=== PATIENT | male | born 1950 | race Caucasian/White ===

== ENCOUNTER → 2020-09-18 08:47 | Outpatient (BNVA) | payer MEDICARE, OTHER, SELFPAY | PROVIDERS: Visit Provider Urology | DX: N40.1 Benign prostatic hyperplasia with lower urinary tract symptoms (principal); R33.9 Retention of urine, unspecified; N52.01 Erectile dysfunction due to arterial insufficiency; Z13.9 Encounter for screening, unspecified; N13.8 Other obstructive and reflux uropathy; R39.14 Feeling of incomplete bladder emptying; R39.16 Straining to void; R39.12 Poor urinary stream | CPT/HCPCS: 51798; 99212 ==

== ENCOUNTER → 2021-09-25 13:31 | Outpatient (BNVA) | payer MEDICARE, OTHER, SELFPAY | PROVIDERS: PCP Internal Medicine; Visit Provider Urology | DX: N40.1 Benign prostatic hyperplasia with lower urinary tract symptoms (principal); R33.8 Other retention of urine; N52.01 Erectile dysfunction due to arterial insufficiency | CPT/HCPCS: Q3014 ==

== ENCOUNTER → 2022-04-02 08:08 | Outpatient (BNVA) | payer MEDICARE, OTHER, SELFPAY | PROVIDERS: PCP Internal Medicine; Visit Provider Urology | DX: N52.01 Erectile dysfunction due to arterial insufficiency (principal); N40.0 Benign prostatic hyperplasia without lower urinary tract symptoms; N28.1 Cyst of kidney, acquired | CPT/HCPCS: 51798; 99212 ==

== ENCOUNTER 2022-09-09 08:38 | Outpatient (REF) | payer MEDICARE, OTHER, SELFPAY ==
--- NOTE | ~2022-09-09 | US_ITS ---
EXAMINATION: US RETROPERITONEAL LIMITED (RENAL ONLY) CLINICAL INFORMATION: Cyst of kidney, acquired. COMPARISON: None available. TECHNIQUE: Real-time imaging of the kidneys. FINDINGS: RIGHT KIDNEY: 11.1 x 6.5 x 5.7 cm (SAG x AP x TRV). The kidney is normal in size, contour, and echogenicity. Renal cortical thickness is normal. No renal calculi or hydronephrosis. 1.1 cm thinly septated cyst with thin mural calcification located in the mid kidney. This is likely Bosniak 2. No follow-up imaging is recommended. LEFT KIDNEY: 11.3 x 5.7 x 5.1 cm (SAG x AP x TRV). The kidney is normal in size, contour, and echogenicity. Renal cortical thickness is normal. No renal calculi or hydronephrosis. 0.7 cm cyst with mural calcification located in the mid kidney. This is likely Bosniak 2. No follow-up imaging is recommended. 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 No follow-up imaging is recommended.
== END 2022-09-09 08:39 | disposition home or self-care (01) ==
LOC: HO.US 08:38
PROVIDERS: PCP Internal Medicine; Visit Provider Urology
DX: N28.1 Cyst of kidney, acquired (principal)
CPT/HCPCS: 76775

== ENCOUNTER 2022-09-30 08:24 | Outpatient (AMB) | payer MEDICARE, OTHER, SELFPAY ==
--- NOTE | 2022-09-30 08:25 | MHC.OFFVIS ---
Intake Intake Visit Reasons: 6M US(set) Intake Note: Patient is present for Telephone Urology Med: Sildenafil, Terazosin, Tadalafil Antibiotic Allergy: Penicillin V Blood Thinner: Pharmacy: [facility] Allergies penicillin V Allergy (Unknown, Verified 09/30/22 08:26) Unknown Medication List - Last Reconciled 09/30/22 by Surinder Torres MD aripiprazole 2 mg PO DAILY atorvastatin 20 mg PO BEDTIME bupropion HCl 150 mg PO BID sildenafil 100 mg PO DIRECTED tadalafil 5 mg PO DAILY PRN 90 days terazosin 5 mg PO DAILY 90 days HPI HPI Comments History of Present Illness Details Roberto Stallworth is a very pleasant male. He is a patient of Dr. Meza. He is seen for the following urologic conditions. - lower urinary tract symptoms - erectile dysfunction - renal cysts - stable bilateral on US 1cm Telemedicine Evaluation 15 min Consultation [employer] Thuan Video attempted Continues with terazosin good response Ultrasound on cysts stable with no follow-up Prostate/Bladder:? Terazosin 5 mg ? Benign prostatic hyperplasia (BPH) was diagnosed?years ago.? Current symptoms include?weak flow, incomplete emptying, straining.? Severity of the symptoms?that is moderate.? Aggravating factors include?fluid intake.? Current medication(s) include?TURP June 2008, TRUS biopsy November 2007. ?09/27 , finasteride, terazosin.? Recent labs included?a PSA (prostate-specific antigen) January 2014 1.2, ?05/26 0.6, 05/27 0.6, 08/27 0.3, 08/30 0.9 ? Investigative studies included?Uroflow. Maximum flow 24 cc, prior postvoid residual 340 cc. ?06/26 , a cystoscopy, showing regrowth right lateral lobe Erectile Dysfunction Good response to on demand medications Trial daily Cialis to see if also benefits bladder PFSH Medical History Acute cystitis without hematuria BPH (benign prostatic hyperplasia) Elevated PSA Erectile dysfunction due to arterial insufficiency Incomplete emptying of bladder Surgical History History of surgery Social History Patient Tobacco Use Status: Never used Tobacco Review of Systems Const All systems reviewed & are unremarkable except as noted in HPI and below Reports no additional complaints Resp Reports no additional complaints GI Reports no additional complaints Reports as per HPI Musc Reports no additional complaints Physical Exam Telemedicine evaluation Appropriate responses Regular breathing rate and rhythm HEENT Head: Yes normal to inspection Ears: hearing grossly normal bilaterally Eyes General: appearance normal, both eyes and all related structures Neck Neck: Yes normal visual inspection Chest Chest palpation & inspection: normal inspection of the chest Resp Effort & Inspection: normal respiratory effort and able to speak in complete sentences Assessment & Plan Assessment & Plan (1) Renal cyst: Code(s): N28.1 - Cyst of kidney, acquired (2) Incomplete emptying of bladder: Code(s): R33.9 - Retention of urine, unspecified (3) BPH (benign prostatic hyperplasia): Code(s): N40.0 - Benign prostatic hyperplasia without lower urinary tract symptoms Plan 6 month follow-up PSA Patient Instructions: Imaging studies, laboratory and physical exam results were discussed and reviewed in detail. No major barriers to patient understanding were identified. An opportunity to ask questions regarding the treatment plan was provided. All questions were answered. The patient expressed understanding and agreement with the above treatment plan. The patient is aware they should contact our office by phone for worsening of their current condition or the appearance of new urologic symptoms. Compliance is encouraged with any medications and followup testing that is ordered. It is a privilege to participate in the urologic care of your patient. If you have any questions or concerns regarding treatment for the above conditions, or other urologic issues, please do not hesitate to contact me. The office telephone contact is [phone]. This note is constructed using voice recognition software. While every effort has been made to ensure accuracy food and drink factory workers errors may have been included. Yours sincerely, Dr Surinder Torres MD, [facility] - Urology Providers of Expert, Compassionate Care for the Genitourinary System Telehealth Telehealth Location of provider rendering services: practice address Location of patient: address on file Patient Identification confirmed using: Name, : Yes Telehealth method: video Patient verbally consented to treatment: Yes Patient verbally consented to billing insurance company: Yes Patient informed of any privacy concerns related to visit: Yes Coding Level of Care Code Tele Est Pt Level 3 (59920) Diagnoses Renal cyst N28.1 Incomplete emptying of bladder R33.9 BPH (benign prostatic hyperplasia) N40.0
== END 2022-09-30 11:56 | disposition home or self-care (01) ==
LOC: HO.HUSH 08:24
PROVIDERS: PCP Internal Medicine; Visit Provider Urology
DX: N28.1 Cyst of kidney, acquired (principal); R33.9 Retention of urine, unspecified; N40.0 Benign prostatic hyperplasia without lower urinary tract symptoms
CPT/HCPCS: 99213

== ENCOUNTER → 2022-09-30 08:24 | Outpatient (BNVA) | payer MEDICARE, OTHER, SELFPAY | PROVIDERS: PCP Internal Medicine; Visit Provider Urology | DX: N40.1 Benign prostatic hyperplasia with lower urinary tract symptoms (principal); R33.9 Retention of urine, unspecified; N28.1 Cyst of kidney, acquired | CPT/HCPCS: Q3014 ==

== ENCOUNTER 2023-04-03 11:22 | Outpatient (AMB) | payer MEDICARE, OTHER, SELFPAY ==
--- NOTE | 2023-04-03 11:34 | A.OFFVIS_ITS ---
Intake Intake Visit Reasons: 6M PSA(set) Intake Note: Patient presents today for a follow-up Meds- Sildenafil, Tadalafil, Terazosin Allergies to Antibiotic- Penicillin Blood Thinner- None Post Void Residual: 192ml Assembler Faucets Required: No Accompanied by: Self / Same As Patient Allergies penicillin V Allergy (Unknown, Verified 04/03/23 11:48) Unknown HPI HPI Comments History of Present Illness Details Roberto Stallworth is a very pleasant male. He is a patient of Dr. Meza. He is seen for the following urologic conditions. - lower urinary tract symptoms - erectile dysfunction - renal cysts - stable bilateral on US 1 cm Increasing urgency and frequency over past few months Struggling with bladder Fine during the evening Has bathroom planning Trial oxybutynin Prostate/Bladder:? Terazosin 5 mg ? Benign prostatic hyperplasia (BPH) was diagnosed?years ago.? Current symptoms include?weak flow, incomplete emptying, straining.? Severity of the symptoms?that is moderate.? Aggravating factors include?fluid intake.? Current medication(s) include?TURP June 2008, TRUS biopsy November 2007. ?09/27 , finasteride, terazosin.? Recent labs included?a PSA (prostate-specific antigen) January 2014 1.2, ?05/26 0.6, 05/27 0.6, 08/27 0.3, 08/30 0.9 ? Investigative studies included?Uroflow. Maximum flow 24 cc, prior postvoid residual 340 cc. ?06/26 , a cystoscopy, showing regrowth right lateral lobe Erectile Dysfunction Good response to on demand medications Trial daily Cialis to see if also benefits bladder PFSH Medical History Elevated PSA Acute cystitis without hematuria Erectile dysfunction due to arterial insufficiency Incomplete emptying of bladder BPH (benign prostatic hyperplasia) Surgical History History of surgery Social History Patient Tobacco Use Status: Never used Tobacco Review of Systems Const Denies chills and Denies fever(s) Card Reports no additional complaints and Denies syncope Resp Denies cough GI Denies abdominal pain and Denies heartburn Reports as per HPI and Denies change in libido Neuro Denies syncope Psych Denies change in libido Endo Denies change in libido Physical Exam Const General: cooperative, healthy appearing, comfortable and no acute distress Orientation/consciousness: patient oriented x3 HEENT Face and sinus: Yes normal facial exam Mouth: moist mucous membranes Neck Neck: Yes normal visual inspection, Yes full ROM and Yes trachea midline Chest Chest palpation & inspection: normal inspection of the chest Resp Effort & Inspection: normal respiratory effort, able to speak in complete sentences and no respiratory distress GI Inspection: Yes normal to inspection Back/Spine/Pelvis Cervical Spine: normal cervical lordosis Thoracic/Lumbar Spine: thoracic and lumbar spine normal to inspection Skin General skin exam: no rashes or lesions noted Neuro General: patient oriented x3, gait normal, tone normal and moves all extremities Extrem General: Yes normal to inspection and Yes capillary refill normal Office Procedures Post Void Residual Post Residual Void Post Void Residual (PVR): 192 [id number]-Vaxc Void Residual by ultrasound Assessment & Plan Assessment & Plan (1) Overactive bladder: Code(s): N32.81 - Overactive bladder (2) Incomplete emptying of bladder: Code(s): R33.9 - Retention of urine, unspecified (3) BPH (benign prostatic hyperplasia): Code(s): N40.0 - Benign prostatic hyperplasia without lower urinary tract symptoms Plan Trial oxybutynin Two month follow-up cysto Orders: Orders AMB Post Void Residual by ultrasound Today N40.0 - Benign prostatic hyperplasia without lower urinary tract symptoms, R33.9 - Retention of urine, unspecified US retroperitoneal comp Today N28.1 - Cyst of kidney, acquired Medications: New oxybutynin chloride ER 5 mg PO DAILY 30 days 30 tabs 1RF N28.1 - Cyst of kidney, acquired, N32.81 - Overactive bladder, R39.15 - Urgency of urination Patient Instructions: Imaging studies, laboratory and physical exam results were discussed and reviewed in detail. No major barriers to patient understanding were identified. An opportunity to ask questions regarding the treatment plan was provided. All questions were answered. The patient expressed understanding and agreement with the above treatment plan. The patient is aware they should contact our office by phone for worsening of their current condition or the appearance of new urologic symptoms. Compliance is encouraged with any medications and followup testing that is ordered. It is a privilege to participate in the urologic care of your patient. If you h ave any questions or concerns regarding treatment for the above conditions, or other urologic issues, please do not hesitate to contact me. The office telephone contact is [phone]. This note is constructed using voice recognition software. While every effort has been made to ensure accuracy hand tier errors may have been included. Yours sincerely, Dr Surinder Torres MD, [facility] - Urology Providers of Expert, Compassionate Care for the Genitourinary System Coding Level of Care Code Est Pt Level 4 (79866) Diagnoses Overactive bladder N32.81 Incomplete emptying of bladder R33.9 BPH (benign prostatic hyperplasia) N40.0 CPT Codes Post Residual Void - PVR CPT Code: 39932-Jibq Void Residual by ultrasound ([id number])
== END 2023-04-03 11:50 | disposition home or self-care (01) ==
PROVIDERS: PCP Internal Medicine; Visit Provider Urology
DX: N32.81 Overactive bladder (principal); R33.9 Retention of urine, unspecified; N40.0 Benign prostatic hyperplasia without lower urinary tract symptoms
CPT/HCPCS: 99214

== ENCOUNTER → 2023-04-03 11:22 | Outpatient (BNVA) | payer MEDICARE, OTHER, SELFPAY | PROVIDERS: PCP Internal Medicine; Visit Provider Urology | DX: N40.0 Benign prostatic hyperplasia without lower urinary tract symptoms (principal); N32.81 Overactive bladder; R33.9 Retention of urine, unspecified | CPT/HCPCS: 51798; 99212 ==

== ENCOUNTER 2023-05-13 12:13 | Outpatient (REF) | payer MEDICARE, OTHER, SELFPAY ==
--- NOTE | ~2023-05-13 | US_ITS ---
EXAMINATION: US RETROPERITONEAL COMPLETE (RENAL) CLINICAL INFORMATION: Cyst of kidney, acquired. COMPARISON: Renal ultrasound 09/09/2022. TECHNIQUE: Real-time imaging of the kidneys and bladder. FINDINGS: RIGHT KIDNEY: 12.1 x 4.7 x 5.6 cm (SAG x AP x TRV). The kidney is normal in size, contour, and echogenicity. Renal cortical thickness is normal. No renal calculi or focal parenchymal lesions. Previously seen cyst is not appreciated on the current exam. Mild caliectasis. LEFT KIDNEY: 11.3 x 6.1 x 5.8 cm (SAG x AP x TRV). The kidney is normal in size, contour, and echogenicity. Renal cortical thickness is normal. No renal calculi or focal parenchymal lesions. Previously seen cyst is not appreciated on the current exam. Mild caliectasis. BLADDER: Distended trabeculated bladder measuring 421 mL prevoid and 273 mL post void. The prostate is enlarged measuring 88 mL. Enlarged prostate, volume 87.9 mL. US/US retroperitoneal comp IMPRESSION: Previously seen bilateral renal cysts are not appreciated currently. Enlarged prostate with trabeculated urinary bladder and post void residual 273 mL. Mild bilateral caliectasis.
== END 2023-05-13 12:14 | disposition home or self-care (01) ==
LOC: HO.US 12:13
PROVIDERS: PCP Family Medicine; Visit Provider Urology
DX: N28.1 Cyst of kidney, acquired (principal)
CPT/HCPCS: 76770

== ENCOUNTER 2023-06-04 10:04 | Outpatient (AMB) | payer MEDICARE, OTHER, SELFPAY ==
--- NOTE | 2023-06-04 10:23 | MHC.OFFVIS ---
Intake Visit Reasons: 2m/US(set) Intake Note: Patient is Present for PVR/ Urology Med: Oxybutynin, Sildenafil, Tadalafil, Terazosin Antibiotic Allergy: Penicillin Blood Thinner: None Last PVR: 192ml Todays PVR: 18 Allergies penicillin V Allergy (Unknown, Verified 06/04/23 10:27) Unknown Medication List - Last Reconciled 06/04/23 by Surinder Torres MD aripiprazole 2 mg PO DAILY bupropion HCl SR 150 mg PO BID oxybutynin chloride ER 5 mg PO DAILY 90 days sildenafil 100 mg PO DIRECTED terazosin 5 mg PO DAILY 90 days HPI Comments Details: Roberto Stallworth is a very pleasant male. He is a patient of Dr. Meza. He is seen for the following urologic conditions. - lower urinary tract symptoms - combination obstructive and irritative symptoms - erectile dysfunction - renal cysts - stable bilateral on US 1cm Significant improvement with oxybutynin Will continue Six-month follow-up Not using tadalafil daily Lower urinary tract symptoms: Initial therapy for obstructive symptoms Secondary development of irritative symptoms Response to combination Terazosin 5 mg and oxybutynin ? Benign prostatic hyperplasia (BPH) was diagnosed?years ago.? Current symptoms include?weak flow, incomplete emptying, straining.? Severity of the symptoms?that is moderate.? Aggravating factors include?fluid intake.? Current medication(s) include?TURP June 2008, TRUS biopsy November 2007. ?09/27 , finasteride, terazosin.? Recent labs included?a PSA (prostate-specific antigen) January 2014 1.2, ?05/26 0.6, 05/27 0.6, 08/27 0.3, 08/30 0.9 ? Investigative studies included?Uroflow. Maximum flow 24 cc, prior postvoid residual 340 cc. ?06/26 , a cystoscopy, showing regrowth right lateral lobe Erectile Dysfunction Good response to on demand medications Has been on combination daily Cialis with on demand sildenafil [facility] Medical History Elevated PSA Acute cystitis without hematuria Erectile dysfunction due to arterial insufficiency Incomplete emptying of bladder BPH (benign prostatic hyperplasia) Surgical History History of surgery Social History Patient Tobacco Use Status: Never used Tobacco Office Procedures Post Void Residual Post Residual Void Post Void Residual (PVR): 18 [id number]-[id number] Void Residual by ultrasound Assessment & Plan Assessment & Plan (1) Overactive bladder: Code(s): N32.81 - Overactive bladder Category: Medical (2) Erectile dysfunction due to arterial insufficiency: Code(s): N52.01 - Erectile dysfunction due to arterial insufficiency Category: Medical (3) BPH (benign prostatic hyperplasia): Code(s): N40.0 - Benign prostatic hyperplasia without lower urinary tract symptoms Category: Medical Plan Refill oxybutynin Six month follow-up Orders: Orders AMB Post Void Residual by ultrasound Today R33.9 - Retention of urine, unspecified Medications: Changed From oxybutynin chloride ER 5 mg PO DAILY 30 days 30 tabs 1RF N28.1 - Cyst of kidney, acquired, N32.81 - Overactive bladder, R39.15 - Urgency of urination To oxybutynin chloride ER 5 mg PO DAILY 90 days 90 tabs 1RF N28.1 - Cyst of kidney, acquired, N32.81 - Overactive bladder, R39.15 - Urgency of urination Discontinued tadalafil Discontinued Reason: Patient Completed Course 5 mg PO DAILY 90 days PRN 90 tabs 1RF sexual activity N52.01 - Erectile dysfunction due to arterial insufficiency Patient Instructions: Imaging studies, laboratory and physical exam results were discussed and reviewed in detail. No major barriers to patient understanding were identified. An opportunity to ask questions regarding the treatment plan was provided. All questions were answered. The patient expressed understanding and agreement with the above treatment plan. The patient is aware they should contact our office by phone for worsening of their current condition or the appearance of new urologic symptoms. Compliance is encouraged with any medications and followup testing that is ordered. It is a privilege to participate in the urologic care of your patient. If you have any questions or concerns regarding treatment for the above conditions, or other urologic issues, please do not hesitate to contact me. The office telephone contact is [phone]. This note is constructed using voice recognition software. While every effort has been made to ensure accuracy grain unloader machine errors may have been included. Yours sincerely, Dr Surinder Torres MD, [facility] - Urology Providers of Expert, Compassionate Care for the Genitourinary System Coding Level of Care Code Est Pt Level 3 (48773) Complex EM visit Add On G2211 Diagnoses Overactive bladder N32.81 Erectile dysfunction due to arterial insufficiency N52.01 BPH (benign prostatic hyperplasia) N40.0 CPT Codes Post Residual Void - PVR CPT Code: 46054-Aaim Void Residual by ultrasound ([id number])
== END 2023-06-04 10:46 | disposition home or self-care (01) ==
PROVIDERS: PCP Internal Medicine; Visit Provider Urology
DX: N32.81 Overactive bladder (principal); N52.01 Erectile dysfunction due to arterial insufficiency; N40.0 Benign prostatic hyperplasia without lower urinary tract symptoms
CPT/HCPCS: 99213; G2211

== ENCOUNTER → 2023-06-04 10:04 | Outpatient (BNVA) | payer MEDICARE, OTHER, SELFPAY | PROVIDERS: PCP Internal Medicine; Visit Provider Urology | DX: N32.81 Overactive bladder (principal); N52.01 Erectile dysfunction due to arterial insufficiency; N40.0 Benign prostatic hyperplasia without lower urinary tract symptoms | CPT/HCPCS: 51798; 99212 ==

== ENCOUNTER 2024-01-15 13:55 | Outpatient (AMB) | payer MEDICARE, OTHER, SELFPAY ==
--- NOTE | 2024-01-15 14:34 | A.OFFVIS_ITS ---
Intake Visit Reasons: 6m/PVR Intake Note: Patient is present for 6M/ PVR Urology Medication:TERAZOSIN,OXYBUTYNIN,SILDENAFIL Antibiotic Allergy:PENICILLIN V Blood Thinner:NONE Last PVR:192ML'S Todays PVR:0ML'S [employer] Required: No Allergies penicillin V Allergy (Unknown, Verified 01/15/24 14:35) Unknown HPI Comments Details: Roberto Stallworth is a very pleasant male. He is a patient of Dr. Meza. He is seen for the following urologic conditions. - lower urinary tract symptoms - combination obstructive and irritative symptoms - erectile dysfunction - renal cysts - stable bilateral on US 1cm Six-month follow-up Remains on oxybutynin with terazosin Had some degree of variability using sildenafil Recommend trying tadalafil daily He has enough of this to try at home he says Lower urinary tract symptoms: Initial therapy for obstructive symptoms Secondary development of irritative symptoms Response to combination Terazosin 5 mg and oxybutynin ? Benign prostatic hyperplasia (BPH) was diagnosed?years ago.? Current symptoms include?weak flow, incomplete emptying, straining.? Severity of the symptoms?that is moderate.? Aggravating factors include?fluid intake.? Current medication(s) include?TURP June 2008, TRUS biopsy November 2007. ?09/27 , finasteride, terazosin.? Recent labs included?a PSA (prostate-specific antigen) January 2014 1.2, ?05/26 0.6, 05/27 0.6, 08/27 0.3, 08/30 0.9 ? Investigative studies included?Uroflow. Maximum flow 24 cc, prior postvoid residual 340 cc. ?06/26 , a cystoscopy, showing regrowth right lateral lobe Erectile Dysfunction Good response to on demand medications Uses primary sildenafil PFSH Medical History Elevated PSA Acute cystitis without hematuria Erectile dysfunction due to arterial insufficiency Incomplete emptying of bladder BPH (benign prostatic hyperplasia) Surgical History History of surgery Social History Patient Tobacco Use Status: Never used Tobacco Review of Systems Const Denies chills and Denies fever(s) Card Reports no additional complaints and Denies syncope Resp Denies cough GI Denies abdominal pain and Denies heartburn Reports as per HPI and Denies change in libido Neuro Denies syncope Psych Denies change in libido Endo Denies change in libido Physical Exam Const General: cooperative, healthy appearing, comfortable and no acute distress Orientation/consciousness: patient oriented x3 HEENT Face and sinus: Yes normal facial exam Mouth: moist mucous membranes Neck Neck: Yes normal visual inspection, Yes full ROM and Yes trachea midline Chest Chest palpation & inspection: normal inspection of the chest Resp Effort & Inspection: normal respiratory effort, able to speak in complete sentences and no respiratory distress GI Inspection: Yes normal to inspection Back/Spine/Pelvis Cervical Spine: normal cervical lordosis Thoracic/Lumbar Spine: thoracic and lumbar spine normal to inspection Skin General skin exam: no rashes or lesions noted Neuro General: patient oriented x3, gait normal, tone normal and moves all extremities Extrem General: Yes normal to inspection and Yes capillary refill normal Office Procedures Post Void Residual Post Residual Void Post Void Residual (PVR): 0 [id number]-Tcyp Void Residual by ultrasound Results AMB Urinalysis, Automated UA Leukoctes 0 Mitzi/uL Last Edit by EARLENE [place] on 01/15/24 14:49 UA Nitrite Negative Last Edit by EARLENE [place] on 01/15/24 14:49 UA Urobilinogen 0.2 mg/dL Last Edit by EARLENE [place] on 01/15/24 14:4 9 UA Protein 0 mg/dL Last Edit by EARLENE [place] on 01/15/24 14:49 UA pH 6.0 Last Edit by EARLENE [place] on 01/15/24 14:49 UA Blood 0 Da/uL Last Edit by EARLENE [place] on 01/15/24 14:49 UA Specific [place] 1.020 Last Edit by EARLENE [place] on 01/15/24 14: 49 UA Ketone Negative Last Edit by EARLENE [place] on 01/15/24 14:49 UA Bilirubin 0 mg/dL Last Edit by EARLENE [place] on 01/15/24 14:49 UA Glucose 0 mg/dL Last Edit by EARLENE [place] on 01/15/24 14:49 Results Reviewed Results Reviewed: Laboratory Last Values Urine pH (Auto) 6.0 01/15/24 14:49 Specific [place] (Auto) 1.020 01/15/24 14:49 Urine Protein (Auto) 0 mg/dL 01/15/24 14:49 Glucose (UA)(Auto) 0 mg/dL 01/15/24 14:49 Urine Ketones (Auto) Negative 01/15/24 14:49 Urine Blood (Auto) 0 Da/uL 01/15/24 14:49 Urine Nitrite (Auto) Negative 01/15/24 14:49 Urine Bilirubin (Auto) 0 mg/dL 01/15/24 14:49 Urine Urobilinogen (Auto) 0.2 mg/dL 01/15/24 14:49 Leukocyte Esterase (Auto) 0 Mitzi/uL 01/15/24 14:49 Assessment & Plan Assessment & Plan (1) BPH (benign prostatic hyperplasia): Code(s): N40.0 - Benign prostatic hyperplasia without lower urinary tract symptoms Category: Medical (2) Erectile dysfunction due to arterial insufficiency: Code(s): N52.01 - Erectile dysfunction due to arterial insufficiency Category: Medical (3) Overactive bladder: Code(s): N32.81 - Overactive bladder Category: Medical Plan Restart daily tadalafil Six-month follow-up Orders: Orders AMB Urinalysis Automated Today Z13.9 - Encounter for screening, unspecified Medications: Refilled oxybutynin chloride ER 5 mg PO DAILY 90 days 90 tabs 1RF N28.1 - Cyst of kidney, acquired, N32.81 - Overactive bladder, R39.15 - Urgency of urination terazosin 5 mg PO DAILY 90 days 90 caps 1RF N52.01 - Erectile dysfunction due to arterial insufficiency Patient Instructions: Imaging studies, laboratory and physical exam results were discussed and reviewed in detail. No major barriers to patient understanding were identified. An opportunity to ask questions regarding the treatment plan was provided. All questions were answered. The patient expressed understanding and agreement with the above treatment plan. The patient is aware they should contact our office by phone for worsening of their current condition or the appearance of new urologic symptoms. Compliance is encouraged with any medications and followup testing that is ordered. It is a privilege to participate in the urologic care of your patient. If you have any questions or concerns regarding treatment for the above conditions, or other urologic issues, please do not hesitate to contact me. The office telephone contact is [phone]. This note is constructed using voice recognition software. While every effort has been made to ensure accuracy refining still operator errors may have been included. Yours sincerely, Dr Surinder Torres MD, [facility] - Urology Providers of Expert, Compassionate Care for the Genitourinary System Coding Level of Care Code Est Pt Level 4 (63637) Diagnoses BPH (benign prostatic hyperplasia) N40.0 Erectile dysfunction due to arterial insufficiency N52.01 Overactive bladder N32.81 CPT Codes Post Residual Void - PVR CPT Code: 92729-Qsfl Void Residual by ultrasound ([id number])
== END 2024-01-15 15:15 | disposition home or self-care (01) ==
PROVIDERS: PCP Internal Medicine; Visit Provider Urology
DX: N40.0 Benign prostatic hyperplasia without lower urinary tract symptoms (principal); N52.01 Erectile dysfunction due to arterial insufficiency; N32.81 Overactive bladder; Z13.9 Encounter for screening, unspecified
CPT/HCPCS: 99214

== ENCOUNTER → 2024-01-15 13:55 | Outpatient (BNVA) | payer MEDICARE, OTHER, SELFPAY | PROVIDERS: PCP Internal Medicine; Visit Provider Urology | DX: N40.0 Benign prostatic hyperplasia without lower urinary tract symptoms (principal); N52.01 Erectile dysfunction due to arterial insufficiency; N28.1 Cyst of kidney, acquired; N32.81 Overactive bladder; R39.15 Urgency of urination; Z79.899 Other long term (current) drug therapy | CPT/HCPCS: 51798; 81003; 99212 ==

== ENCOUNTER 2024-07-19 08:54 | Outpatient (AMB) | payer MEDICARE, OTHER, SELFPAY ==
--- NOTE | 2024-07-19 08:57 | MHC.OFFVIS ---
Intake Visit Reasons: 6m follow up Intake Note: Patient is present for 6M F/U Urology Medication:TERAZOSIN,OXYBUTYNIN,SILDENAFIL Antibiotic Allergy:PENICILLIN V Blood Thinner:NONE TODAY'S PVR: 93ML'S Marketing Operations Specialist Required: No Allergies penicillin V Allergy (Unknown, Verified 07/19/24 09:11) Unknown HPI Comments Details: Roberto Stallworth is a very pleasant male. He is a patient of Dr. Meza. He is seen for the following urologic conditions. - lower urinary tract symptoms - combination obstructive and irritative symptoms - erectile dysfunction - renal cysts - stable bilateral on US 1cm Six-month follow-up Remains on oxybutynin with terazosin PVR 90 cc Recent diagnosis from Parkinson's Stop oxybutynin Did discuss starting Myrbetriq if required Should stay on daily tadalafil with on demand Lower urinary tract symptoms: Initial therapy for obstructive symptoms Secondary development of irritative symptoms Response to combination Terazosin 5 mg and oxybutynin ? Benign prostatic hyperplasia (BPH) was diagnosed?years ago.? Current symptoms include?weak flow, incomplete emptying, straining.? Severity of the symptoms?that is moderate.? Aggravating factors include?fluid intake.? Current medication(s) include?TURP June 2008, TRUS biopsy November 2007. ?09/27 , finasteride, terazosin.? Recent labs included?a PSA (prostate-specific antigen) January 2014 1.2, ?05/26 0.6, 05/27 0.6, 08/27 0.3, 08/30 0.9 ? Investigative studies included?Uroflow. Maximum flow 24 cc, prior postvoid residual 340 cc. ?06/26 , a cystoscopy, showing regrowth right lateral lobe Erectile Dysfunction Good response to on demand medications Uses primary sildenafil PFSH Medical History Elevated PSA Acute cystitis without hematuria Erectile dysfunction due to arterial insufficiency Incomplete emptying of bladder BPH (benign prostatic hyperplasia) Surgical History History of surgery Social History Patient Tobacco Use Status: Never used Tobacco Review of Systems Const Denies chills and Denies fever(s) Card Reports no additional complaints and Denies syncope Resp Denies cough GI Denies abdominal pain and Denies heartburn Reports as per HPI and Denies change in libido Neuro Denies syncope Psych Denies change in libido Endo Denies change in libido Physical Exam Const General: cooperative, healthy appearing, comfortable and no acute distress Orientation/consciousness: patient oriented x3 HEENT Face and sinus: Yes normal facial exam Mouth: moist mucous membranes Neck Neck: Yes normal visual inspection, Yes full ROM and Yes trachea midline Chest Chest palpation & inspection: normal inspection of the chest Resp Effort & Inspection: normal respiratory effort, able to speak in complete sentences and no respiratory distress GI Inspection: Yes normal to inspection Back/Spine/Pelvis Cervical Spine: normal cervical lordosis Thoracic/Lumbar Spine: thoracic and lumbar spine normal to inspection Skin General skin exam: no rashes or lesions noted Neuro General: patient oriented x3, gait normal, tone normal and moves all extremities Extrem General: Yes normal to inspection and Yes capillary refill normal Office Procedures Post Void Residual Post Residual Void Post Void Residual (PVR): 93 55224-Noid Void Residual by ultrasound Results AMB Urinalysis, Automated UA Leukoctes 0 Mitzi/uL Last Edit by EARLENE France on 07/19/24 09:13 UA Nitrite Negative Last Edit by EARLENE France on 07/19/24 09:13 UA Urobilinogen 0.2 mg/dL Last Edit by EARLENE France on 07/19/24 09:13 UA Protein 0 mg/dL Last Edit by EARLENE France on 07/19/24 09:13 UA pH 6.0 Last Edit by EARLENE France on 07/19/24 09:13 UA Blood 0 Da/uL Last Edit by EARLENE France on 07/19/24 09:13 UA Specific [place] 1.010 Last Edit by EARLENE France on 07/19/24 09:13 UA Ketone Negative Last Edit by EARLENE France on 07/19/24 09:13 UA Bilirubin 0 mg/dL Last Edit by EARLENE France on 07/19/24 09:13 UA Glucose 0 mg/dL Last Edit by EARLENE France on 07/19/24 09:13 Results Reviewed Results Reviewed: Laboratory Last Values Urine pH (Auto) 6.0 07/19/24 09:12 Specific [place] (Auto) 1.010 07/19/24 09:12 Urine Protein (Auto) 0 mg/dL 07/19/24 09:12 Glucose (UA)(Auto) 0 mg/dL 07/19/24 09:12 Urine Ketones (Auto) Negative 07/19/24 09:12 Urine Blood (Auto) 0 Da/uL 07/19/24 09:12 Urine Nitrite (Auto) Negative 07/19/24 09:12 Urine Bilirubin (Auto) 0 mg/dL 07/19/24 09:12 Urine Urobilinogen (Auto) 0.2 mg/dL 07/19/24 09:12 Leukocyte Esterase (Auto) 0 Mitzi/uL 07/19/24 09:12 Assessment & Plan Assessment & Plan (1) Erectile dysfunction due to arterial insufficiency: Code(s): N52.01 - Erectile dysfunction due to arterial insufficiency Category: Medical (2) Overactive bladder: Code(s): N32.81 - Overactive bladder Category: Medical (3) BPH (benign prostatic hyperplasia): Code(s): N40.0 - Benign prostatic hyperplasia without lower urinary tract symptoms Category: Medical Plan Six-month follow-up Stop oxybutynin Myrbetriq if required Orders: Orders AMB Urinalysis Automated Today Z13.9 - Encounter for screening, unspecified Medications: New tadalafil 5 mg PO DAILY 90 days 90 tabs 1RF bladder instability N32.81 - Overactive bladder tadalafil On demand medication take 60 minutes before intended activity 20 mg PO ONCE 30 days PRN 30 tabs 0RF sexual activity N52.01 - Erectile dysfunction due to arterial insufficiency Refilled terazosin 5 mg PO DAILY 90 days 90 caps 1RF N52.01 - Erectile dysfunction due to arterial insufficiency Discontinued oxybutynin chloride ER Discontinued Reason: Doctor's Order 5 mg PO DAILY 90 days 90 tabs 0RF N28.1 - Cyst of kidney, acquired, N32.81 - Overactive bladder, R39.15 - Urgency of urination Patient Instructions: This note is constructed using voice recognition software. While every effort has been made to ensure accuracy bar machine operator production errors may have been included. Imaging studies, laboratory and physical exam results were discussed and reviewed in detail. No major barriers to patient understanding were identified. An opportunity to ask questions regarding the treatment plan was provided. All questions were answered. The patient expressed understanding and agreement with the above treatment plan. The patient is aware they should contact our office by phone for worsening of their current condition or the appearance of new urologic symptoms. Compliance is encouraged with any medications and followup testing that is ordered. It is a privilege to participate in the urologic care of your patient. If you have any questions or concerns regarding treatment for the above conditions, or other urologic issues, please do not hesitate to contact me. The office telephone contact is [phone]. Sincerely, Dr Surinder Torres MD, [facility] - Urology Compassionate Specialist Care for the Genitourinary System Coding Level of Care Code Est Pt Level 4 (73932) Complex EM visit Add On G2211 Diagnoses Erectile dysfunction due to arterial insufficiency N52.01 Overactive bladder N32.81 BPH (benign prostatic hyperplasia) N40.0 CPT Codes Post Residual Void - PVR CPT Code: 93534-Hdrj Void Residual by ultrasound ([id number])
== END 2024-07-19 09:33 | disposition home or self-care (01) ==
LOC: HO.HUSH 08:55
PROVIDERS: PCP Internal Medicine; Visit Provider Urology
DX: N52.01 Erectile dysfunction due to arterial insufficiency (principal); N32.81 Overactive bladder; N40.0 Benign prostatic hyperplasia without lower urinary tract symptoms; Z13.9 Encounter for screening, unspecified
CPT/HCPCS: 99214; G2211

== ENCOUNTER → 2024-07-19 08:54 | Outpatient (BNVA) | payer MEDICARE, OTHER, SELFPAY | PROVIDERS: PCP Internal Medicine; Visit Provider Urology | DX: N52.01 Erectile dysfunction due to arterial insufficiency (principal); N40.0 Benign prostatic hyperplasia without lower urinary tract symptoms; N32.81 Overactive bladder | CPT/HCPCS: 51798; 81003; 99212 ==

== ENCOUNTER 2024-09-22 15:06 | Outpatient (REF) | payer MEDICARE, OTHER, SELFPAY ==
--- NOTE | ~2024-09-22 | US_ITS ---
EXAMINATION: US SCROTUM CLINICAL INFORMATION: Right testicle enlarged and painful.. COMPARISON: None available. TECHNIQUE: A sonogram of the scrotum was performed assessing acrson-scale appearance and color Doppler flow. Spectral Doppler analysis of the arterial and venous flow were performed in the testes bilaterally. FINDINGS: RIGHT: Right testicle measures 3.3 x 2.4 x 2.7 cm, volume 11.3 mL. No focal testicular parenchymal lesions are visualized. There are microcalcifications visualized. Spectral Doppler analysis of the arterial and venous flow is normal in the right testis. Right epididymal head is normal in size. There is a right epididymal head cysts with the largest cyst measuring 0.8 x 0.6 x 0.8 cm No right hydrocele or varicocele is seen. Right epididymal Doppler flow is . LEFT: Left testicle measures 3.5 x 2.3 x 2.1 cm, volume 8.8 mL. No focal testicular parenchymal lesions are visualized. There are microcalcifications visualized. Spectral Doppler analysis of the arterial and venous flow is normal in the left testis. Left epididymal head is normal in size. No left hydrocele or varicocele is seen. There is a complex epididymal head cyst measuring 0.8 x 0.6 x 0.6 cm. Left epididymal Doppler flow is normal. US/US scrotum IMPRESSION: Bilateral epididymal cysts with normal arterial and venous flow seen in the epididymis. Microcalcifications bilateral testes otherwise unremarkable. Normal arterial and venous flow seen to both testes. Electronically signed by: Dominik Latham MD 09/22/2024 04:45 PM EDT
--- OUTSIDE RECORDS SUMMARY | 2024-09-22 15:40 | XMS_ITS | Encounter Summary ---
[place] [address] Care Team Providers Care Culinary Artist Name Role Phone Verona Haley MD Primary Care Provider [phone] Encounter Details Date Type Department Care Team (Latest Contact Info) Description 09/19/2024 Travel Social History Tobacco Use Types Packs/Day Years Used Date Smoking Tobacco: Never Smokeless Tobacco: Never Sex and Gender Information Value Date Recorded Sex Assigned at Not on file Legal Sex Male 6:23 AM EST Gender Identity Not on file Sexual Orientation Not on file documented as of this encounter Plan of Treatment Upcoming Encounters Date Type Department Care Team (Late st Contact Info) Description 09/26/2024 10:00 AM EDT Office Visit Neurology at [address] [address] Que Josue MD [facility] [place] [address] documented as of this encounter Visit Diagnoses Not on filedocumented in this encounter Care Teams Culinary Artist Relationship Specialty Start Date End Date Vernoa Haley MD [address] [place] [address] [place] [address] PCP - General Family Medicine 03/30/23 documented as of this encounter
--- OUTSIDE RECORDS SUMMARY | 2024-09-22 15:40 | XMS_ITS | Encounter Summary ---
Author Organization [facility] Address [address] [facility] [address] [place] [address] Phone Care Team Providers Care Tool Setter Name Role Phone NaniPamela singleton Primary Care Provider [phone] Pcp, Not Required Primary Care Provider Verona Estevez MD Primary Care Provider [phone] Encounter Details Date Type Department Care Team (Latest Contact Info) Description 11/14/2019 Transcribe Orders [facility] [address] [place] [address] Giuliana Morataya PA-C [address] [place] [address] [email or web address] Inguinal pain, unspecified laterality (Primary Dx) Social History Tobacco Use Types Packs/Day Years Used Date Smoking Tobacco: Never Smokeless Tobacco: Never Alcohol Use Standard Drinks/Week Comments Yes 8 (1 standard drink = 0.6 oz pur e alcohol) Sex and Gender Information Value Date Recorded Sex Assigned at Male 07/10/2017 9:11 PM EDT Legal Sex Male 6:55 PM EST Gender Identity Male 07/10/2017 9:11 PM EDT Sexual Orientation Straight 07/10/2017 9: 11 PM EDT documented as of this encounter Plan of Treatment Upcoming Encounters Date Type Department Care Team (Late st Contact Info) Description 05/24/2025 12:00 PM EDT Office Visit [facility] [address] [place] [id number] Rj Moon MD, MS [address] [place] [address] [email or web address] documented as of this encounter Results * Immunoglobulin A (11/14/2019 12:12 PM EDT) IgA 164 70 - 400 mg/dL [facility] Blood 11/14/2019 12:1 2 PM EDT 11/14/2019 12:15 PM EDT us Giuliana Morataya PA-C LAB BLOOD ORDERABLES Final Resu lt Performing Organization Address [facility]/ZIP Co de Phone Number [address] [address] * TSH (11/14/2019 12:12 PM EDT) TSH 1.52 0.27 - 4.20 uIU/mL [facility] Blood 11/14/2019 12:1 2 PM EDT 11/14/2019 12:15 PM EDT us Giuliana Morataya PA-C LAB BLOOD ORDERABLES Final Resu lt Performing Organization Address [facility]/ZIP Co de Phone Number [address] [address] * C-Reactive Protein (11/14/2019 12:12 PM EDT) C REACTIVE PROTEIN <0.3 0.0 - 4.0 mg/L [facility] Blood 11/14/2019 12:1 2 PM EDT 11/14/2019 12:15 PM EDT us Giuliana Morataya PA-C LAB BLOOD ORDERABLES Final Resu lt Performing Organization Address [facility]/ZIP Co de Phone Number [address] [address] * Tissue transglutaminase IgA (11/14/2019 12:12 PM EDT) TTG IGA ANTIBODY <1.2 <4.0 (Negative) U/mL [facility] Blood 11/14/2019 12:1 2 PM EDT 11/14/2019 2:41 PM EDT us Giuliana Morataya PA-C LAB BLOOD ORDERABLES Final Resu lt [facility] [address] [address] [place] [address] documented in this encounter Visit Diagnoses Diagnosis Inguinal pain, unspecified laterality- Primary documented in this encounter Care Teams Tool Setter Relationship Specialty Start Date End Date Pamela Meza DO [address] [place] [address] PCP - General Internal Medicine 02/18/16 02/15/23 Pcp, Not Required [address] [place] [address] PCP - General 02/16/23 08/16/23 Verona Haley MD [address] [place] [address] [email or web address] PCP - General Family Medicine 08/17/23 documented as of this encounter Additional Source Comments The information contained in this document represents components of the legal health record. It is not the complete legal health record.[facility]
== END 2024-09-22 15:07 | disposition home or self-care (01) ==
LOC: HO.US 15:06
PROVIDERS: Visit Provider Urology
DX: N50.89 Other specified disorders of the male genital organs (principal)
CPT/HCPCS: 76870

== ENCOUNTER → 2024-09-22 15:09 | Outpatient (BNV) | payer MEDICARE, OTHER, SELFPAY | PROVIDERS: Visit Provider Radiology Diagnostic Radiology | DX: N50.3 Cyst of epididymis (principal); N50.89 Other specified disorders of the male genital organs | CPT/HCPCS: 76870 ==

== ENCOUNTER 2024-11-29 08:25 | Outpatient (AMB) | payer MEDICARE, OTHER, SELFPAY ==
--- NOTE | 2024-11-29 08:24 | MHC.OFFVIS ---
Intake Visit Reasons: Enlarged Testicle Intake Note: Patient is present for: follow up enlarged testicles Urology Medication:TERAZOSIN, tadalafil, sildenafil Blood Thinner:NONE TODAY'S PVR: 29mls Solvent Plant Treater Required: No Accompanied by: Self / Same As Patient Allergies penicillin V Allergy (Unknown, Verified 11/29/24 08:25) Unknown HPI Comments Details: Roberto Stallworth is a very pleasant male. He is a patient of Dr. Meza. He is seen for the following urologic conditions. - lower urinary tract symptoms - combination obstructive and irritative symptoms - erectile dysfunction - renal cysts - stable bilateral on US 1cm Six-month follow-up Remains on terazosin Should stay on daily tadalafil with on demand Bilateral epididymal cysts Parkinson's Good response with daily tadalafil and terazosin Lower urinary tract symptoms: Initial therapy for obstructive symptoms Secondary development of irritative symptoms Response to combination Terazosin 5 mg and oxybutynin ? Benign prostatic hyperplasia (BPH) was diagnosed?years ago.? Current symptoms include?weak flow, incomplete emptying, straining.? Severity of the symptoms?that is moderate.? Aggravating factors include?fluid intake.? Current medication(s) include?TURP June 2008, TRUS biopsy November 2007. ?09/27 , finasteride, terazosin.? Recent labs included?a PSA (prostate-specific antigen) January 2014 1.2, ?05/26 0.6, 05/27 0.6, 08/27 0.3, 08/30 0.9 ? Investigative studies included?Uroflow. Maximum flow 24 cc, prior postvoid residual 340 cc. ?06/26 , a cystoscopy, showing regrowth right lateral lobe Erectile Dysfunction Good response to on demand medications Uses primary sildenafil [facility] Medical History Elevated PSA Acute cystitis without hematuria Erectile dysfunction due to arterial insufficiency Incomplete emptying of bladder BPH (benign prostatic hyperplasia) Surgical History History of surgery Social History Patient Tobacco Use Status: Never used Tobacco Review of Systems Const Denies chills and Denies fever(s) Card Reports no additional complaints and Denies syncope Resp Denies cough GI Denies abdominal pain and Denies heartburn Reports as per HPI and Denies change in libido Neuro Denies syncope Psych Denies change in libido Endo Denies change in libido Physical Exam Const General: cooperative, healthy appearing, comfortable and no acute distress Orientation/consciousness: patient oriented x3 HEENT Face and sinus: Yes normal facial exam Mouth: moist mucous membranes Neck Neck: Yes normal visual inspection, Yes full ROM and Yes trachea midline Chest Chest palpation & inspection: normal inspection of the chest Resp Effort & Inspection: normal respiratory effort, able to speak in complete sentences and no respiratory distress GI Inspection: Yes normal to inspection Back/Spine/Pelvis Cervical Spine: normal cervical lordosis Thoracic/Lumbar Spine: thoracic and lumbar spine normal to inspection Skin General skin exam: no rashes or lesions noted Neuro General: patient oriented x3, gait normal, tone normal and moves all extremities Extrem General: Yes normal to inspection and Yes capillary refill normal Assessment & Plan Assessment & Plan (1) Overactive bladder: Code(s): N32.81 - Overactive bladder Category: Medical (2) Erectile dysfunction due to arterial insufficiency: Code(s): N52.01 - Erectile dysfunction due to arterial insufficiency Category: Medical Plan Six-month follow-up Patient Instructions: This note is constructed using voice recognition software. While every effort has been made to ensure accuracy supervising chef errors may have been included. Imaging studies, laboratory and physical exam results were discussed and reviewed in detail. No major barriers to patient understanding were identified. An opportunity to ask questions regarding the treatment plan was provided. All questions were answered. The patient expressed understanding and agreement with the above treatment plan. The patient is aware they should contact our office by phone for worsening of their current condition or the appearance of new urologic symptoms. Compliance is encouraged with any medications and followup testing that is ordered. It is a privilege to participate in the urologic care of your patient. If you have any questions or concerns regarding treatment for the above conditions, or other urologic issues, please do not hesitate to contact me. The office telephone contact is [phone]. Sincerely, Dr Surinder Torres MD, [facility] - Urology Compassionate Specialist Care for the Genitourinary System Coding Level of Care Code Est Pt Level 3 (57001) Complex EM visit Add On G2211 Diagnoses Overactive bladder N32.81 Erectile dysfunction due to arterial insufficiency N52.01
--- OUTSIDE RECORDS SUMMARY | 2024-11-29 08:38 | XMS_ITS | Encounter Summary ---
Author Organization [facility] Address [address] [facility] [address] [place] [address] Phone Care Team Providers Care Forest Pathology Professor Name Role Phone NaniPamela singleton Alyssia LARSON Primary Care Provider [phone] Pcp, Not Required Primary Care Provider Verona Estevez MD Primary Care Provider [phone] Encounter Details Date Type Department Care Team (Late st Contact Info) Description 02/18/2016 Procedure Pass [facility] Imaging, [address] [place] [address] Social History Tobacco Use Types Packs/Day Years Used Date Smoking Tobacco: Never Alcohol Use Standard Drinks/Week Comments Yes 2 (1 standard drink = 0.6 oz pur [...] Description 05/24/2025 12:00 PM EDT Office Visit [facility] [address] [place] [address] Rj Mono MD, MS [address] [place] [address] [email or web address] documented as of this encounter Visit Diagnoses Not on filedocumented in this encounter Care Teams Forest Pathology Professor Relationship Specialty Start Date End Date Pamela Mzea DO [address] [place] [address] PCP - General Internal Medicine 02/18/16 02/15/23 Pcp, Not Required [address] [place] [address] PCP - General 02/16/23 08/16/23 Verona Haley MD [address] [place] [address] [email or web address] PCP - General Family Medicine 08/17/23 documented as of this encounter Additional Source Comments The information contained in this document represents components of the legal health record. It is not the complete legal health record.[facility]
--- OUTSIDE RECORDS SUMMARY | 2024-11-29 08:38 | XMS_ITS | Encounter Summary ---
Author Organization [facility] Address [address] [facility] [address] [place] [address] Phone Care Team Providers Care Manager Cancer Name Role Phone SusanaPamela Alyssia LARSON Primary Care Provider [phone] Pcp, Not Required Primary Care Provider Verona Estevez MD Primary Care Provider [phone] Encounter Details Date Type Department Care Team (Late st Contact Info) Description 06/18/2020 Procedure Pass [facility], [address] [address] Social History Tobacco Use Types Packs/Day Years [...] Description 05/24/2025 12:00 PM EDT Office Visit [facility] [address] [place] [address] Rj Moon MD, MS [address] [place] [address] [email or web address] documented as of this encounter Visit Diagnoses Not on filedocumented in this encounter Care Teams Manager Cancer Relationship Specialty Start Date End Date Pamela Meza DO [address] [place] [address] PCP - General Internal Medicine 02/18/16 02/15/23 Pcp, Not Required [address] [place] [address] PCP - General 02/16/23 08/16/23 Verona Haley MD [address] [place] [address] [email or web address] PCP - General Family Medicine 08/17/23 documented as of this encounter Additional Source Comments The information contained in this document represents components of the legal health record. It is not the complete legal health record.[facility]
--- OUTSIDE RECORDS SUMMARY | 2024-11-29 08:38 | XMS_ITS | Clinical Summary ---
Author Organization [facility] Address [address] [facility] [address] [place] [address] Phone Care Team Providers Care Magnetic Resonance Imaging Coordinator Name Role Phone Verona Haley MD Primary Care Provider [phone] Allergies Active Allergy Reactions Criticality Noted Date Comments Penicillins 02/18/2016 Medications buPROPion (WELLBUTRIN) 75 MG immediate release tabletIndicatio ns:patient unsure of exact dosing Take 75 mg by mouth 2 (two) times a day. Indications: patient unsure of exact dosing Active Lactobac. rhamnosus GG-inulin ([facility] Pillars4Life) 10 billion cell -200 mg Cap Take by mouth. 02/20/2022 Active melatonin 3 mg Tab Take 20 mg by mouth nightly at bedtime. Active terazosin (HYTRIN) 1 MG capsuleIndicati ons:patient unsure of dosing Take 1 mg by mouth nightly at bedtime. Indications: patient unsure of dosing Active oxyBUTYnin (DITROPAN-XL) 5 MG 24 hr tablet 06/04/2023 Act monique sertraline (ZOLOFT) 50 MG tablet Take 1.5 tablets by mouth daily. 07/09/2023 Active polyethylene glycol 3350 (MIRALAX ORAL) Take 17 g by mouth. 02/20/2022 Active coenzyme Q10 200 mg capsule Take 200 mg by mouth daily. Active rosuvastatin (CRESTOR) 20 MG tablet Take 1 tablet (20 mg total) by mouth daily. 90 tablet 3 10/26/2024 Active clopidogrel (PLAVIX) 75 mg tablet Take 1 tablet (75 mg total) by mouth daily. 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 Parotid neoplasm 02/18/2016 Encounters Date Type Department Care Team Description 10/28/2024 Telephone [facility] [address] [place] [address] Rj Moon MD, MS Bikdeli/Refill 10/26/2024 Refill [facility] [address] [place] [address] Rj Moon MD, MS Medication Refill from Last 3 Months Family History Medical History Relation Comments Colon cancer Father Heart disease Mother Heart disease Paternal Grandmother Relation Status Comments Father Maternal Grandfather Maternal Grandmother Mother Paternal Grandfather Paternal Grandmother Sister 1 Alive Sister 2 Social History Tobacco Use Types Packs/Day Years Used Date Smoking Tobacco: Never Smokeless Tobacco: Never Tobacco Cessation:Counseling Given: Not Answered Alcohol Use Standard Drinks/Week Comments Yes 4 (1 standard drink = 0.6 oz pur e alcohol) Education Answer Date Recorded Are you interested in more education? Not on johnathan e 06/12/2022 Are you concerned about learning? Not on file 06/12/2022 No 06/12/2022 No 06/12/2022 Digital Access Answer Date Recorded No 07/06/2022 No 07/06/2022 Reliable internet access at home? Not on file 07/06/2022 Device with a working camera? Not on file Intimate Partner Violence Answer Date R ecorded Are you denied basic needs s uch as food, clothing, or medical care? No 08/17/2023 In the past 12 months have y ou been in a relationship with a person who hurts, threatens, or tries to control you? No 08/17/2023 Are you denied basic needs s uch as food, clothing, or medical care? No 08/17/2023 In the past 12 months have y ou been in a relationship with a person who hurts, threatens, or tries to control you? No 08/17/2023 Sex and Gender Information Value Date Recorded Sex Assigned at Male 07/10/2017 9:11 PM EDT Legal Sex Male 6:55 PM EST Gender Identity Male 07/10/2017 9:11 PM EDT Sexual Orientation Straight 07/10/2017 9: 11 PM EDT Last Filed Vital Signs Vital Sign Reading Time Taken Comments Blood Pressure 132/80 05/11/2024 12:48 PM EDT Pulse 51 05/11/2024 12:48 PM EDT Temperature 36.2 C (97.1 F) 08/17/2023 1:24 PM EDT Respiratory Rate 16 08/17/2023 1:35 PM EDT Oxygen Saturation 98% 05/11/2024 12:48 PM EDT Inhaled Oxygen Concentration - - Weight 81.6 kg (180 lb) 05/11/2024 12:48 PM EDT Height 177.8 cm (5' 10 ) 08/12/2023 2:53 PM EDT Body Mass Index 25.83 08/12/2023 2:53 PM EDT Plan of Treatment Upcoming Encounters Date Type Department Care Team (Late st Contact Info) Description 05/24/2025 12:00 PM EDT Office Visit [facility] [address] [place] [address] Rj Moon MD, MS [address] [place] [address] [email or web address] Health Maintenance Due Date Last Done Comments DEPRESSION SCREENING 1963 HEPATITIS C SCREENING 10/08/1969 COLOGUARD 10/08/1996 FIT TEST 10/08/1996 FOBT 10/08/1996 SIGMOIDOSCOPY 10/08/1996 VIRTUAL COLONOSCOPY 10/08/1996 ZOSTER VACCINES (1 of 2) 10/08/2001 PNEUMOCOCCAL VACCINES (50+ years) (2 of 2 - PCV) 12/19/2020 12/20/2019 INFLUENZA VACCINE (#1) 2024 11/28/2020, 2019 COVID-19 VACCINE ( - season) 2024 12/17/2021, 05/27/2021, 11/06/2020, Additional history exists RSV VACCINE (1 - 1-dose 75+ series) 10/08/2026 Adult Td,Tdap Booster 10/30/2026 10/30/2016, 011 LIPID PANEL 10/15/2028 10/16/2023 COLONOSCOPY 08/16/2033 08/17/2023, 05/21/2017 COLORECTAL CANCER SCREENING 08/16/2033 SMOKING STATUS SCREENING (Once After 26 Yrs) Completed 05/11/2024 HEPATITIS A VACCINES Aged Out No long er eligible based on patient's age to complete this topic HIB VACCINES Aged Out No longer eligi ble based on patient's age to complete this topic MENINGOCOCCAL VACCINES (ACWY) Aged Out No longer eligible based on patient's age to complete this topic MENINGOCOCCAL VACCINES (B) Aged Out N o longer eligible based on patient's age to complete this topic Medical Devices Not on file Procedures Procedure Name Priority Date/Time Associated Diagnosis Comments LIPID PANEL Routine 10/16/2023 10:14 AM EDT Vascular disease ENDOSCOPY, COLON 08/17/2023 12:5 3 PM EDT from Last 3 Months or Most Recently Relevant to Health Maintenance Results * (ABNORMAL) Lipid panel (10/16/2023 10:14 AM EDT) CHOLESTEROL 225(H) <200 mg/dL [facility] TRIGLYCERIDES 89 35 - 150 mg/dL [facility] HDL 72 40 - 80 mg/dL [facility] CALCULATED LDL 135(H) 50 - 129 mg/dL [facility] VLDL 18 <31 mg/dL [facility] CARDIAC RISK RATIO 3.1 0.0 - 4.0 [facility] 10/16/2023 10:1 4 AM EDT 10/16/2023 10:39 AM EDT Rj Moon MD, MS LAB BLOOD ORDERABLES Anisha l Result [facility] [address] [place] [id number] * ENDOSCOPY, COLON (08/17/2023 12:53 PM EDT) Narrative Transcriptions Malka Downey MD - 08/17/2023 12:53 PM EDT [facility] Patient Name: Roberto Bethay Attending MD:: MALKA DOWNEY MD, Procedure Date: 08/17/2023 12:53 PM Date of : 1950 Age: 72 Admit Type: Outpatient Gender: Male Room: [place] [address] Referring MD: Verona Haley Exam Type: Colonoscopy Indications: Screening in patient at increased risk: Colorectal cancer in father 60 or older, Surveillance:Personal history of adenomatous polyps on last colonoscopy >3 years ago, Last colonoscopy: May 2020 Medications: Monitored Anesthesia Care Procedure: Informed consent was obtained from the patientafter discussion of the indications, limitations, alternatives, benefits, and risks of the procedure. Risks specifically discussed include but are not limited to medication reactions, missed lesions, bleeding, perforation, or the need for emergent surgery. Throughout the procedure, the patient's blood pressure, pulse, end-tidal CO2, and oxygensaturations were monitored continuously. The Colonoscope was introduced through the anus and advanced to the cecum, identified by theappendiceal orifice, ileocecal valve and palpation. The colonoscopy was technically difficult and complexdue to a redundant colon, significant looping and a tortuous colon. Successful completion of theprocedure was aided by applying abdominal pressure. Thepatient tolerated the procedure fairly well. The quality of the bowel preparation was evaluated using the BBPS ([place] Bowel Preparation Scale) with scores of:Right Colon = 1 (portion of mucosa seen, but other areasnot well seen due to staining, residual stool and/or opaque liquid), Transverse Colon = 2 (minor amountof residual staining, small fragments of stool and/or opaque liquid, but mucosa seen well) and Left Colon= 1 (portion of mucosa seen, but other areas not well seen due to staining, residual stool and/or opaque liquid). The total BBPS score equals 4. The qualityof the bowel preparation was fair. Complications: No immediate complications. Estimated blood loss:None. Findings: The perianal and digital rectal examinations were normal. Pertinent negatives include normalsphincter tone. A large amount of liquid semi-liquid stool wasfound in the recto-sigmoid colon, in the descendingcolon, in the ascending colon and in the cecum, making visualization difficult. The ascending colon revealed moderately excessive looping. Retroflexion in the right colon was performed. Non-bleeding internal hemorrhoids were found during retroflexion. The hemorrhoids were moderate. Impression: - Preparation of the colon was fair. - Stool in the recto-sigmoid colon, in thedescending colon, in the ascending colon and in the cecum. - There was significant looping of the colon. - Non-bleeding internal hemorrhoids. - No specimens collected. Recommendation: - [facility] colon[facility] 3 - [facility] 2 day prep. MALKA DOWNEY MD 08/17/2023 1:25:14 PM This report has been signed electronically. Number of Addenda: 0 Note Initiated On: 08/17/2023 12:53 PM Procedure Code(s): --- Professional --- G0105, Colorectal cancer screening; colonoscopy on individual at high risk --- Technical --- G0105, Colorectal cancer screening; colonoscopy on individual at high risk Diagnosis Code(s): --- Professional --- Z80.0, Family history of malignant neoplasm of digestive organs Z86.010, Personal history of colonic polyps K64.8, Other hemorrhoids --- Technical --- Z80.0, Family history of malignant neoplasm of digestive organs Z86.010, Personal history of colonic polyps K64.8, Other hemorrhoids CPT copyright 2021 [employer]. All rights reserved. The codes documented in this report are preliminary and upon hop worker reviewmay be revised to meet current compliance requirements. Procedure Date: 08/17/2023 12:53:07 PM [address] [place] [address] Verona Haley MD GI PROCEDURE ORDERABLES Final R esult from Last 3 Months or Most Recently Relevant to Health Maintenance Insurance MEDICARE PART A & B [facility] MEDICARE SUPPLEMENT MEDICARE PART A & B [facility] MEDICARE SUPPLEMENT MEDICARE PART A & B Member Subscriber Plan / Payer (Ef fective 2016-Present) Name:Roberto Stallworth Member ID:[id number] Relation to Subscriber:Self Name:Roberto Stallworth Subscriber ID:[id number] Payer ID:[id number] Group ID:Not on file Type:Medicare Address: [facility] [employer] [facility] [address] [place] [address] [facility] MEDICARE SUPPLEMENT MEDICARE PART A & B [facility] MEDICARE SUPPLEMENT MEDICARE PART A & B [facility] MEDICARE SUPPLEMENT MEDICARE PART A & B [employer] EXTENSION MEDICARE SUPPLEMENT MEDICARE PART A & B [employer] EXTENSION MEDICARE SUPPLEMENT MEDICARE PART A & B [employer] MEDICARE SUPPLEMENT MEDICARE PART A & B [employer] MEDICARE SUPPLEMENT Care Teams Magnetic Resonance Imaging Coordinator Relationship Specialty Start Date End Date Verona Haley MD [email or web address] PCP - General Family Medicine 08/17/23 Additional Source Comments The information contained in this document represents components of the legal health record. It is not the complete legal health record.[facility]
--- OUTSIDE RECORDS SUMMARY | 2024-11-29 08:38 | XMS_ITS | Encounter Summary ---
Author Organization [facility] Address [address] [facility] [address] [place] [address] Phone Care Team Providers Care Enterprise Services Manager Name Role Phone Pamela Meza DO Primary Care Provider [phone] Pcp, Not Required Primary Care Provider Verona Estevez MD Primary Care Provider [phone] Reason for Referral * MRI/CAT Scan - Closed Specialty Diagnoses / Procedures Referred By Chichi ya Referred To Contact Radiology Diagnoses Memory loss Ataxia Numbness Procedures MRI Brain Adrien Dominguez MD Phone: tel: fax: [email or web address] Referral ID Status Reason Start Date Expiration Date Visits Re quested Visits Authorized [id number] Closed 03/02/2018 03/02/2019 1 1 Encounter Details Date Type Department Care Team (Late st Contact Info) Description 03/02/2018 Ancillary Orders Virtual Department [address] [place] [address] Adrien Dominguez MD [address] [place] [address], [address] [place], [place] [id number] [email or web address] Memory loss; Ataxia; Numbness Social History Tobacco Use Types Packs/Day Years [...] 05/24/2025 12:00 PM EDT Office Visit [facility] [address] [place] [address] Rj Moon MD, MS [address] [place] [address] [email or web address] documented as of this encounter Results * MRI BRAIN WITHOUT CONTRAST (03/08/2018 8:15 PM EST) Anatomical Region Laterality Modality Head Magnetic Resonan ce 03/08/2018 8:56 PM EST Impressions 03/08/2018 9:08 PM EST A few small T2/T2 FLAIR hyperintensities within the deep white matter likely due to minimal chronic small vessel ischemia. No other significant intracranial abnormalities. POS - [id number] Narrative 03/08/2018 9:08 PM EST HISTORY: Diplopia and amnesia. COMPARISON: None. TECHNIQUE: Exam performed on a 1.5 [place]na high-field MRI scanner. Axial T1, T2, T2*, T2 FLAIR and diffusion-weighted imaging with ADC map, sagittal T1, T2 FLAIR sequences were obtained. FINDINGS: Approximately five small T2/T2 FLAIR hyperintensities within the deep white matter, more numerous on left than right. No evidence of signal abnormalities in the corpus callosum, brainstem or cerebellar hemispheres. No evidence of intracranial hemorrhage, hematomas or acute infarcts. Ventricles are normal in size and configuration. Basal cisterns are patent. Normal flow-voids the base of the skull. Small amount of layering fluid in the left maxillary sinus. Procedure Note Ton Guzman MD - 03/08/2018 HISTORY: Diplopia and amnesia. COMPARISON: None. TECHNIQUE: Exam performed on a 1.5 [place]na high-field MRI scanner. AxialT1, T2, T2*, T2 FLAIR and diffusion-weighted imaging with ADC map,sagittal T1, T2 FLAIR sequences were obtained. FINDINGS: Approximately five small T2/T2 FLAIR hyperintensities within the deepwhite matter, more numerous on left than right. No evidence of signalabnormalities in the corpus callosum, brainstem or cerebellarhemispheres. No evidence of intracranial hemorrhage, hematomas or acute infarcts. Ventricles are normal in size and configuration. Basal cisterns arepatent. Normal flow-voids the base of the skull. Small amount of layering fluid in the left maxillary sinus. IMPRESSION: A few small T2/T2 FLAIR hyperintensities within the deep white matterlikely due to minimal chronic small vessel ischemia. No other significantintracranial abnormalities. POS - [id number] Adrien Dominguez MD IMG MR HEAD/NECK Final Resul t documented in this encounter Visit Diagnoses Diagnosis Memory loss Ataxia Lack of coordination Numbness Disturbance of skin sensation Memory loss Ataxia Lack of coordination Numbness Disturbance of skin sensation documented in this encounter Care Teams Enterprise Services Manager Relationship Specialty Start Date End Date Pamela Meza DO [address] [place] [address] PCP - General Internal Medicine 02/18/16 02/15/23 Pcp, Not Required [address] [place] [address] PCP - General 02/16/23 08/16/23 Verona Haley MD [address] [place] [phone] [email or web address] PCP - General Family Medicine 08/17/23 documented as of this encounter Additional Source Comments The information contained in this document represents components of the legal health record. It is not the complete legal health record.[facility]
--- OUTSIDE RECORDS SUMMARY | 2024-11-29 08:38 | XMS_ITS | Encounter Summary ---
Author Organization [facility] Address [address] [place] [address] Phone Care Team Providers Care Renal Technician Name Role Phone Verona Haley MD Primary Care Provider [phone] Encounter Details Date Type Department Care Team (Late st Contact Info) Description 08/17/2023 Procedure Pass [facility] Endoscopy Admitting Dept Virtual Department [address] [place] [address] Social History Tobacco Use Types Packs/Day Years Used Date Smoking Tobacco: Never Smokeless Tobacco: Never Alcohol Use Standard Drinks/Week Comments Yes 4 [...] Description 05/24/2025 12:00 PM EDT Office Visit [facility] [address] [place] [address] Rj Moon MD, MS [address] [place] [address] [email or web address] documented as of this encounter Visit Diagnoses Not on filedocumented in this encounter Care Teams Renal Technician Relationship Specialty Start Date End Date Verona Haley MD [email or web address] PCP - General Family Medicine 08/17/23 documented as of this encounter Additional Source Comments The information contained in this document represents components of the legal health record. It is not the complete legal health record.[facility]
--- OUTSIDE RECORDS SUMMARY | 2024-11-29 08:38 | XMS_ITS | Encounter Summary ---
Author Organization [facility] Address [address] [place] [address] Phone Care Team Providers Care Sampling Expert Name Role Phone SusanaPamela Alyssia LARSON Primary Care Provider [phone] Pcp, Not Required Primary Care Provider Verona Estevez MD Primary Care Provider [phone] Encounter Details Date Type Department Care Team (Late st Contact Info) Description 10/08/2022 Telephone [facility] Department of Neurosurgery [address] [place] [address] Munir Frazier MD [address] [place] [address] Department of Neurosurgery, [address] [address] [email or web address] Social History Tobacco Use Types Packs/Day Years [...] with a working camera? Not on file Sex and Gender Information Value Date Recorded Sex Assigned at Male 07/10/2017 9:11 PM EDT Legal Sex Male 6:55 PM EST Gender Identity Male 07/10/2017 9:11 PM EDT Sexual Orientation Straight 07/10/2017 9: 11 PM EDT documented as of this encounter Plan of Treatment Upcoming Encounters Date Type Department Care Team (Late st Contact Info) Description 05/24/2025 12:00 PM EDT Office Visit [facility] [address] [place] [address] Rj Moon MD, MS [address] [place] [address] [email or web address] documented as of this encounter Visit Diagnoses Not on filedocumented in this encounter Care Teams Sampling Expert Relationship Specialty Start Date End Date Pamela Meza DO [address] [place] [address] PCP - General Internal Medicine 02/18/16 02/15/23 Pcp, Not Required [address] [place] [phone] PCP - General 02/16/23 08/16/23 Verona Haley MD [address] [place] [address] [email or web address] PCP - General Family Medicine 08/17/23 documented as of this encounter Additional Source Comments The information contained in this document represents components of the legal health record. It is not the complete legal health record.[facility]
--- OUTSIDE RECORDS SUMMARY | 2024-11-29 08:38 | XMS_ITS | Encounter Summary ---
Author Organization [facility] Address [address] [facility] [address] [place] [address] Phone Care Team Providers Care Judge'S Clerk Name Role Phone Susana Pamela Alyssia LARSON Primary Care Provider [phone] Pcp, Not Required Primary Care Provider Verona Estevez MD Primary Care Provider [phone] Encounter Details Date Type Department Care Team (Late st Contact Info) Description 03/02/2018 Procedure Pass [facility], [address] [address] Social History Tobacco Use Types Packs/Day Years [...] PM EDT documented as of this encounter Last Filed Vital Signs Vital Sign Reading Time Taken Comments Blood Pressure - - Pulse - - Temperature - - Respiratory Rate - - Oxygen Saturation - - Inhaled Oxygen Concentration - - Weight 74.8 kg (165 lb) 03/03/2018 1:19 PM EST Height 177.8 cm (5' 10 ) 03/03/2018 1:19 PM EST Body Mass Index 23.68 03/03/2018 1:19 PM EST documented in this encounter Plan of Treatment Upcoming Encounters Date Type Department Care Team (Late st Contact Info) Description 05/24/2025 12:00 PM EDT Office Visit [facility] [address] [place] [address] Rj Moon MD, MS [address] [place] [address] [email or web address] documented as of this encounter Visit Diagnoses Not on filedocumented in this encounter Care Teams Judge'S Clerk Relationship Specialty Start Date End Date Pamela Meza DO [address] [place] [address] PCP - General Internal Medicine 02/18/16 02/15/23 Pcp, Not Required [address] [place] [address] PCP - General 02/16/23 08/16/23 Verona Haley MD [address] [place] [address] [email or web address] PCP - General Family Medicine 08/17/23 documented as of this encounter Additional Source Comments The information contained in this document represents components of the legal health record. It is not the complete legal health record.[facility]
--- OUTSIDE RECORDS SUMMARY | 2024-11-29 08:38 | XMS_ITS | Encounter Summary ---
Author Organization [facility] Address [address] [place] [address] Phone Care Team Providers Care Import Specialist Name Role Phone AgustoPamela giron Alyssia LARSON Primary Care Provider [phone] Pcp, Not Required Primary Care Provider Verona Estevez MD Primary Care Provider [phone] Encounter Details Date Type Department Care Team (Late st Contact Info) Description 07/31/2022 Ophth Exam [facility] Emergency Department [address] [place] [address] Dora Lisa MD [address] [place] [address] [email or web address] Social History Tobacco Use Types Packs/Day Years [...] PM EDT documented as of this encounter Functional Status * Calculated C-SSRS Risk Score (Lifetime/Recent) Answer Date of Assessment Author No Risk Indicated 07/31/2022 10:43 AM EDT Yarely Cline RN * [place] Suicide Severity Rating Scale (Screener/Recent Self-Report) Question Answer Date of Assessment Author 1. Wish to be (Past 1 Month) No 07/31/2022 10:43 AM EDT Hannah Page RN 2. Non-Specific Active Suicidal Thoughts (Past 1 Month) No 07/31/2022 10:43 AM EDT Hannah Page RN 6. Suicidal Behavior (Lifetime) No 07/31/2022 10:43 AM EDT Hannah Page RN documented as of this encounter Plan of Treatment Upcoming Encounters Date Type Department Care Team (Late st Contact Info) Description 05/24/2025 12:00 PM EDT Office Visit [facility] Cardiovascular Clinic [address] [place] [address] Rj Moon MD, MS [address] [place] [address] [email or web address] documented as of this encounter Visit Diagnoses Not on filedocumented in this encounter Care Teams Import Specialist Relationship Specialty Start Date End Date Pamela Meza DO [address] [place] [address] PCP - General Internal Medicine 02/18/16 02/15/23 Pcp, Not Required [address] [place] [address] PCP - General 02/16/23 08/16/23 Verona Haley MD [address] [place] [address] [email or web address] PCP - General Family Medicine 08/17/23 documented as of this encounter Additional Source Comments The information contained in this document represents components of the legal health record. It is not the complete legal health record.[facility]
--- OUTSIDE RECORDS SUMMARY | 2024-11-29 08:38 | XMS_ITS | Encounter Summary ---
Author Organization [facility] Address [address] [place] [address] Phone Care Team Providers Care Leather Goods Ii Assembler Name Role Phone Parker Mezaa Alyssia LARSON Primary Care Provider [phone] Pcp, Not Required Primary Care Provider Verona Estevez MD Primary Care Provider [phone] Encounter Details Date Type Department Care Team (Late st Contact Info) Description 03/06/2022 Procedure Pass [facility], Ct Scan - [address] [address] Social History Tobacco Use Types Packs/Day Years [...] Date of Assessment Author No Risk Indicated 03/06/2022 12:17 PM EST Jostin Pathak RN * [place] Suicide Severity Rating Scale (Screener/Recent Self-Report) Question Answer Date of Assessment Author 1. Wish to be (Past 1 Month) No 023 12:17 PM EST Jostin Pathak RN 2. Non-Specific Active Suici barrington Thoughts (Past 1 Month) No 03/06/2022 12:17 PM Jostin Rios RN 6. Suicidal Behavior (Lifetime) No 12:17 PM Jostin Rios RN documented as of this encounter Plan of Treatment Upcoming Encounters Date Type Department Care Team (Late st Contact Info) Description 05/24/2025 12:00 PM EDT Office Visit [facility] Cardiovascular Clinic [address] [place] [address] Rj Moon MD, MS [address] [place] [address] [email or web address] documented as of this encounter Visit Diagnoses Not on filedocumented in this encounter Care Teams Leather Goods Ii Assembler Relationship Specialty Start Date End Date Pamela Meza DO [address] [place] [address] PCP - General Internal Medicine 02/18/16 02/15/23 Pcp, Not Required [address] [place] [address] PCP - General 02/16/23 08/16/23 Verona Haley MD [address] [place] [address] [email or web address] PCP - General Family Medicine 08/17/23 documented as of this encounter Additional Source Comments The information contained in this document represents components of the legal health record. It is not the complete legal health record.[facility]
--- OUTSIDE RECORDS SUMMARY | 2024-11-29 08:38 | XMS_ITS | Encounter Summary ---
Author Organization [facility] Address [address] [place] [address] Phone Care Team Providers Care Manager Critical Care Name Role Phone Verona Haley MD Primary Care Provider [phone] Reason for Visit * Reason Onset Date Comments Bikdeli/Refill 10/28/2024 Encounter Details Date Type Department Care Team (Late st Contact Info) Description 10/28/2024 Telephone [facility] Cardiovascular Clinic [address] [place] [address] Rj Moon MD, MS [address] [place] [address] [email or web address] Bikdeli/Refill Social History Tobacco Use Types Packs/Day Years [...] PM EDT documented as of this encounter Progress Notes * Anselmo Barton - 10/28/2024 11:50 AM EDT [facility] called requesting the following refill/s List medication/s - strength: Clopidogrel 75mg Rsouvastatin 20mg Is this a new medication or refill of existing medication? Refill Are you out of medication? Yes Callers questions/concerns: Confirm patients pharmacy: Pharmacy name/location: [facility] [address] Pharmacy phone number: Roberto Stallworth Telephone Information: Work Phone Not on file. Anselmo Velarde Patient Viner Operator Department of Medicine [facility] documented in this encounter Plan of Treatment Upcoming Encounters Date Type Department Care Team (Late st Contact Info) Description 05/24/2025 12:00 PM EDT Office Visit [facility] Cardiovascular Clinic [address] [place] [address] Rj Moon MD, MS [address] [place] [address] [email or web address] documented as of this encounter Visit Diagnoses Not on filedocumented in this encounter Care Teams Manager Critical Care Relationship Specialty Start Date End Date Verona Haley MD [email or web address] PCP - General Family Medicine 08/17/23 documented as of this encounter Additional Source Comments The information contained in this document represents components of the legal health record. It is not the complete legal health record.[facility]
--- OUTSIDE RECORDS SUMMARY | 2024-11-29 08:38 | XMS_ITS | Encounter Summary ---
Author Organization [facility] Address [address] [facility] [address] [place] [address] Phone Care Team Providers Care Legal Librarian Name Role Phone NaniPamela singleton Primary Care Provider [phone] Pcp, Not Required Primary Care Provider Verona Estevez MD Primary Care Provider [phone] Encounter Details Date Type Department Care Team (Latest Contact Info) Description 05/19/2020 Transcribe Orders Virtual Department [address] [place] [address] Reggie Spaulding MD [address] [place] [address] [email or web address] Pre-operative laboratory examination (Primary Dx) Social History Tobacco Use Types [...] Description 05/24/2025 12:00 PM EDT Office Visit [facility] Cardiovascular Clinic [address] [place] [address] Rj Moon MD, MS [address] [place] [address] [email or web address] documented as of this encounter Results * COVID-19 PCR Order (05/21/2020 8:22 AM EDT) COVID-19 Comment [id number] [facility] COVID Testing Status Sent to [facility] Micro Lab [facility] 05/21/2020 8:22 AM EDT 05/21/2020 3:30 PM EDT us Reggie Spaulding MD BODY FLUIDS AND STOOLS ORDERAB LES Edited Result - Final [facility] [address] [place] [address] documented in this encounter Visit Diagnoses Diagnosis Pre-operative laboratory examination- Primary Pre-procedural laboratory examination documented in this encounter Care Teams Legal Librarian Relationship Specialty Start Date End Date Pamela Meza DO [address] [place] [address] PCP - General Internal Medicine 02/18/16 02/15/23 Pcp, Not Required [address] [place] [address] PCP - General 02/16/23 08/16/23 Verona Haley MD [address] [place] [address] [email or web address] PCP - General Family Medicine 08/17/23 documented as of this encounter Additional Source Comments The information contained in this document represents components of the legal health record. It is not the complete legal health record.[facility]
--- OUTSIDE RECORDS SUMMARY | 2024-11-29 08:38 | XMS_ITS | Clinical Summary ---
Author Organization [facility] Address [facility] [place] [address] Care Team Providers Care Golf Sales Manager Name Role Phone Verona Haley MD Primary Care Provider [phone] Allergies Active Allergy Reactions Criticality Noted Date Comments Penicillins 02/18/2016 Medications buPROPion (Wellbutrin) 75 mg tablet Take 75 mg by mouth Twice daily. Active terazosin (Hytrin) 1 mg capsule Take 1 mg by mouth Daily. Active rosuvastatin (Crestor) 20 mg tablet Take 20 mg by mouth Daily @ 0600. 4 Active oxyBUTYnin XL (Ditropan XL) 5 mg ER 24 hr tablet 4 Active melatonin 3 mg tablet Take 6 mg by mouth Daily @ 0600. Active clopidogreL (Plavix) 75 mg tablet Take 75 mg by mouth Daily @ 0600. 4 Active tadalafiL (Cialis) 20 mg tablet as needed. 5 Active Coenzyme Q10 (Ubiquinone) 200 mg capsule Take 200 mg by mouth Daily @ 0600. Active Lactobac. rhamnosus GG-inulin ([facility]) 10 billion cell -200 mg Capsule Take by mouth daily. 3 Active UNABLE TO FIND daily. Mushroom supplement Active polyethylene glycoL (Miralax) 17 gram/dose Powder Take 17 g by mouth daily. Active sertraline (Zoloft) 50 mg tablet TAKE 1 1/2 TABLETS BY MOUTH EVERY DAY 135 tablet 3 5 Active clonazePAM (KlonoPIN) 0.5 mg tablet Take 1 tablet by mouth 2 times daily as needed for Anxiety. 60 tablet Active Encounters Date Type Department Care Team Description 11/17/2024 Refill Neurology at [address] [place] [address] Que Josue MD 11/16/2024 Refill Neurology at [address] [place] [address] Que Josue MD 11/11/2024 Refill Neurology at [address] [place] [address] Que Josue MD 09/26/2024 10:00 AM EDT Office Visit Neurology at [address] [address] Que Josue MD RBD (REM behavioral disorder); Synucleinopathy; Slow transit constipation; Parkinson's disease without dyskinesia or fluctuating manifestations; Dizzy spells 09/26/2024 Travel 09/19/2024 Travel from Last 3 Months Social History Tobacco Use Types Packs/Day Years Used Date Smoking Tobacco: Never Smokeless Tobacco: Never Tobacco Cessation:Counseling Given: Not Answered Sex and Gender Information Value Date Recorded Sex Assigned at Not on file Legal Sex Male 6:23 AM EST Gender Identity Not on file Sexual Orientation Not on file Last Filed Vital Signs Vital Sign Reading Time Taken Comments Blood Pressure 145/77 09/26/2024 9:48 AM EDT Pulse 50 09/26/2024 9:48 AM EDT Temperature - - Respiratory Rate - - Oxygen Saturation 98% 09/26/2024 9:48 AM EDT Inhaled Oxygen Concentration - - Weight 78.9 kg (174 lb) 09/26/2024 9:48 AM EDT r eported Height 177.8 cm (5' 10 ) 09/26/2024 9:48 AM EDT Body Mass Index 24.97 09/26/2024 9:48 AM EDT Plan of Treatment Upcoming Encounters Date Type Department Care Team (Late st Contact Info) Description 03/29/2025 11:30 AM EST Office Visit Neurology at [address] [address] Que Josue MD [facility] [place] [address] Health Maintenance Due Date Last Done Comments CT Colonography 1951 Colonoscopy 1950 Colorectal Cancer Screening 1950 FIT DNA 1950 FIT 1950 Sigmoidoscopy (10 year) with FIT yearly 1950 Sigmoidoscopy 1950 Hepatitis C Screening 10/08/1969 Tetanus/Diphtheria/Pertussis Vaccines (1 - Tdap) 10/08/1970 Pneumoccocal Vaccine: 50+ (1 of 1 - PCV) 10/08/2001 Zoster vaccine (1 of 2) 10/08/2001 Advance Directive 10/08/2006 Covid-19 Vaccine (5 - 2024-2 6 season) 2024 05/27/2021, 11/06/2020, 04/27/2020, Additional history exists Influenza (Flu) vaccine (1 o f 1 - Influenza standard series) 10/10/2024 Insurance MEDICARE [facility] [place]OHAN [id number] Care Teams Golf Sales Manager Relationship Specialty Start Date End Date Verona Haley MD [address] [place] [address] Dr Carney, [place]EMIO [phone] PCP - General Family Medicine 03/30/23
--- OUTSIDE RECORDS SUMMARY | 2024-11-29 08:38 | XMS_ITS | Encounter Summary ---
Author Organization [facility] Address [address] [facility] [address] [place] [address] Phone Care Team Providers Care Inside Trucker Name Role Phone SusanaPamela Alyssia LARSON Primary Care Provider [phone] Pcp, Not Required Primary Care Provider Verona Estevez MD Primary Care Provider [phone] Encounter Details Date Type Department Care Team (Late st Contact Info) Description 05/21/2017 Procedure Pass [facility] Endoscopy Admitting Dept Virtual Department [address] [place] [address] Social History Tobacco Use Types Packs/Day Years [...] 05/24/2025 12:00 PM EDT Office Visit [facility] Cardiovascular Clinic [address] [place] [address] Rj Moon MD, MS [address] [place] [address] [email or web address] documented as of this encounter Visit Diagnoses Not on filedocumented in this encounter Care Teams Inside Trucker Relationship Specialty Start Date End Date Pamela Meza DO [address] [place] [address] PCP - General Internal Medicine 02/18/16 02/15/23 Pcp, Not Required [address] [place] [address] PCP - General 02/16/23 08/16/23 Verona Haley MD [address] [place] [address] [email or web address] PCP - General Family Medicine 08/17/23 documented as of this encounter Additional Source Comments The information contained in this document represents components of the legal health record. It is not the complete legal health record.[facility]
--- OUTSIDE RECORDS SUMMARY | 2024-11-29 08:38 | XMS_ITS | Encounter Summary ---
Author Organization [facility] Address [address] [facility] [address] [place] [address] Phone Care Team Providers Care Optic Fibre Drawer Name Role Phone NaniPamlea singleton Primary Care Provider [phone] Pcp, Not Required Primary Care Provider Verona Estevez MD Primary Care Provider [phone] Encounter Details Date Type Department Care Team (Latest Contact Info) Description 11/14/2019 Transcribe Orders [facility] [address] [place] [address] Giuliana Morataya PA-C [address] [place] [address] [email or web address] Inguinal pain, unspecified laterality (Primary Dx) Social [...] Description 05/24/2025 12:00 PM EDT Office Visit [facility] Cardiovascular Clinic [address] [place] [address] Rj Moon MD, MS [address] [place] [address] [email or web address] documented as of this encounter Results * Immunoglobulin A (11/14/2019 12:12 PM EDT) IgA 164 70 - 400 mg/dL [facility] Blood 11/14/2019 12:1 2 PM EDT 11/14/2019 12:15 PM EDT us Giuliana Morataya PA-C LAB BLOOD ORDERABLES Final Resu lt Performing Organization Address [facility]/ZIP Co de Phone Number [address] [address] * TSH (11/14/2019 12:12 PM EDT) TSH 1.52 0.27 - 4.20 uIU/mL [facility] Blood 11/14/2019 12:1 2 PM EDT 11/14/2019 12:15 PM EDT us Giuliana Morataya PA-C LAB BLOOD ORDERABLES Final Resu lt Performing Organization Address [facility]/ZIP Co de Phone Number [address] [address] * C-Reactive Protein (11/14/2019 12:12 PM EDT) C REACTIVE PROTEIN <0.3 0.0 - 4.0 mg/L [facility] Blood 11/14/2019 12:1 2 PM EDT 11/14/2019 12:15 PM EDT us Giuliana Morataya PA-C LAB BLOOD ORDERABLES Final Resu lt Performing Organization Address [facility]/ZIP Co de Phone Number [address] [address] * Tissue transglutaminase IgA (11/14/2019 12:12 PM EDT) TTG IGA ANTIBODY <1.2 <4.0 (Negative) U/mL [facility] Blood 11/14/2019 12:1 2 PM EDT 11/14/2019 2:41 PM EDT us Giuliana Morataya PA-C LAB BLOOD ORDERABLES Final Resu lt [facility] LAB MED/[address] [place] [address] documented in this encounter Visit Diagnoses Diagnosis Inguinal pain, unspecified laterality- Primary documented in this encounter Care Teams Optic Fibre Drawer Relationship Specialty Start Date End Date Pamela Meza DO [address] [place] [address] PCP - General Internal Medicine 02/18/16 02/15/23 Pcp, Not Required [address] [place] [address] PCP - General 02/16/23 08/16/23 Verona Haley MD [address] [place] [address] [email or web address] PCP - General Family Medicine 08/17/23 documented as of this encounter Additional Source Comments The information contained in this document represents components of the legal health record. It is not the complete legal health record.[facility]
--- OUTSIDE RECORDS SUMMARY | 2024-11-29 08:38 | XMS_ITS | Encounter Summary ---
Author Organization [facility] Address [address] [facility] [address] [place] [address] Phone Care Team Providers Care Feeder/Folder Name Role Phone NaniPamela singleton Primary Care Provider [phone] Pcp, Not Required Primary Care Provider Verona Estevez MD Primary Care Provider [phone] Encounter Details Date Type Department Care Team (Late st Contact Info) Description 03/11/2018 Ancillary Orders Virtual Department [address] [place] [address] Adrien Dominguez MD [address] [place] [address], [address] [place] [address] [email or web address] TIA (transient ischemic attack) Social History Tobacco Use Types Packs/Day Years [...] Description 05/24/2025 12:00 PM EDT Office Visit [facility] Cardiovascular Clinic [address] [place] [address] Rj Moon MD, MS [address] [place] [address] [email or web address] documented as of this encounter Results * US Carotid Duplex (Bilateral) (03/12/2018 12:37 PM EST) Anatomical Region Laterality Modality Heart, Thoracic Vasculature, Neck Ultrasound 03/12/2018 1:09 PM EST Impressions 03/12/2018 1:11 PM EST Minor plaquing in the carotid bulbs bilaterally with no significant internal carotid artery stenosis seen. Vertebral arteries are patent with antegrade flow bilaterally. S/S: TIA, memory loss, blurred vision POS - [id number] Narrative 03/12/2018 1:11 PM EST The carotid circulation is visualized well with grayscale imaging, color flow imaging, and Doppler spectral analysis. On the right there is a small amount of soft plaque in the carotid bulb evident. On the left there is a small amount of mixed plaque in the carotid bulb and proximal internal carotid artery evident. Both external carotid and vertebral arteries are patent with antegrade flow bilaterally. No internal carotid artery stenosis is seen on either side. The right internal carotid artery has a peak systolic velocity of 0.78 m/s with an end-diastolic velocity of 0.29 m/s. On the left the internal carotid artery has a peak systolic velocity of 0.86 m/s with an end-diastolic velocity of 0.32 m/s. Negligible spectral broadening is evident. Any stenosis measurement is relative to the distal ICA diameters. Procedure Note Luca Soriano MD - 03/12/2018 The carotid circulation is visualized well with grayscale imaging, colorflow imaging, and Doppler spectral analysis. On the right there is asmall amount of soft plaque in the carotid bulb evident. On the leftthere is a small amount of mixed plaque in the carotid bulb and proximalinternal carotid artery evident. Both external carotid and vertebralarteries are patent with antegrade flow bilaterally. No internal carotid artery stenosis is seen on either side. The right internal carotid artery has a peak systolic velocity of 0.78 m/swith an end-diastolic velocity of 0.29 m/s. On the left the internalcarotid artery has a peak systolic velocity of 0.86 m/s with anend-diastolic velocity of 0.32 m/s. Negligible spectral broadening isevident. Any stenosis measurement is relative to the distal ICA diameters. IMPRESSION: Minor plaquing in the carotid bulbs bilaterally with no significantinternal carotid artery stenosis seen. Vertebral arteries are patent withantegrade flow bilaterally. S/S: TIA, memory loss, blurred vision POS - [id number] us Adrien Dominguez MD CV US NEUROVASCULAR Final Re sult documented in this encounter Visit Diagnoses Diagnosis TIA (transient ischemic attack) Unspecified transient cerebral ischemia TIA (transient ischemic attack) Unspecified transient cerebral ischemia documented in this encounter Care Teams Feeder/Folder Relationship Specialty Start Date End Date Pamela Meza DO [address] [place] [address] PCP - General Internal Medicine 02/18/16 02/15/23 Pcp, Not Required [address] [place] [address] PCP - General 02/16/23 08/16/23 Verona Haley MD [address] [place] [address] [email or web address] PCP - General Family Medicine 08/17/23 documented as of this encounter Additional Source Comments The information contained in this document represents components of the legal health record. It is not the complete legal health record.[facility]
--- OUTSIDE RECORDS SUMMARY | 2024-11-29 08:38 | XMS_ITS | Encounter Summary ---
Author Organization [facility] Address [address] [place] [address] Phone Care Team Providers Care Building Custodial Supervisor Name Role Phone Verona Haley MD Primary Care Provider [phone] Encounter Details Date Type Department Care Team (Late st Contact Info) Description 10/14/2023 Procedure Pass [facility] [address] [place] [address] Social History Tobacco Use Types Packs/Day Years [...] Office Visit [facility] Cardiovascular Clinic [address] [place] [address] Rj Moon MD, MS [address] [place] [address] [email or web address] documented as of this encounter Visit Diagnoses Not on filedocumented in this encounter Care Teams Building Custodial Supervisor Relationship Specialty Start Date End Date Verona Haley MD [email or web address] PCP - General Family Medicine 08/17/23 documented as of this encounter Additional Source Comments The information contained in this document represents components of the legal health record. It is not the complete legal health record.[facility]
--- OUTSIDE RECORDS SUMMARY | 2024-11-29 08:38 | XMS_ITS | Encounter Summary ---
Author Organization [facility] Address [address] [facility] [address] [place] [phone] Phone Care Team Providers Care Supervisor Last Model Department Name Role Phone SusanaPamela Alyssia LARSON Primary Care Provider [phone] Pcp, Not Required Primary Care Provider Verona Estevez MD Primary Care Provider [phone] Encounter Details Date Type Department Care Team (Late st Contact Info) Description 11/15/2019 Procedure Pass [facility], Ct Scan - [address] [address] Social History Tobacco Use Types Packs/Day Years [...] Description 05/24/2025 12:00 PM EDT Office Visit [facility] [address] [place] [address] Rj Moon MD, MS [address] [place] [address] [email or web address] as of this encounter Visit Diagnoses Not on filedocumented in this encounter Care Teams Supervisor Last Model Department Relationship Specialty Start Date End Date Pamela Meza DO [address] [place] [phone] PCP - General Internal Medicine 02/18/16 02/15/23 Pcp, Not Required [address] [place] [phone] PCP - General 02/16/23 08/16/23 Verona Haley MD [address] [place] [phone] [email or web address] PCP - General Family Medicine 08/17/23 documented as of this encounter Additional Source Comments The information contained in this document represents components of the legal health record. It is not the complete legal health record.[facility]
== END 2024-11-29 09:10 | disposition home or self-care (01) ==
LOC: HO.HUSH 08:25
PROVIDERS: Visit Provider Urology
DX: N32.81 Overactive bladder (principal); N52.01 Erectile dysfunction due to arterial insufficiency
CPT/HCPCS: 99213; G2211

== ENCOUNTER → 2024-11-29 08:25 | Outpatient (BNVA) | payer MEDICARE, OTHER, SELFPAY | PROVIDERS: Visit Provider Urology | DX: N32.81 Overactive bladder (principal); N52.01 Erectile dysfunction due to arterial insufficiency | CPT/HCPCS: 99212 ==